=== PATIENT | male | born 1955 | race Caucasian/White ===

== ENCOUNTER 2021-11-18 07:26 | Day surgery (SDC) | payer BC, OTHER ==
[2021-11-17 13:09] VITALS: BMI 27.8
[2021-11-18] MEDS ORDERED: SUCCINYLCHOLINE CHLORIDE 200 MG/10 ML SYRINGE ONE (09:19)
[2021-11-18] MEDS ORDERED: MIDAZOLAM HCL 2 MG/2 ML SINGLE DOSE VIAL ONE (09:19)
[2021-11-18] MEDS ORDERED: PROPOFOL 20 ML ONE (09:19)
[2021-11-18] MEDS ORDERED: BUPIVACAINE HCL/EPINEPHRINE/PF 30 ML VIAL IJ ONE (09:30)
[2021-11-18] MEDS ORDERED: BUPIVACAINE HCL/PF 2.5 MG/ML - 30 ML VIAL IJ ONE (09:31)
[2021-11-18] MEDS ORDERED: PROMETHAZINE HCL 25 MG/1 ML VIAL IVPUSH PRN (11:49)
[2021-11-18] MEDS ORDERED: oxyCODONE HCL 5 MG TABLET PO PRN ×2 (11:49)
[2021-11-18] MEDS ORDERED: ONDANSETRON 4 MG/2 ML VIAL IVPUSH PRN (11:49)
[2021-11-18] MEDS ORDERED: FENTANYL CITRATE/PF 50 MCG/ML VIAL ONE ×3 (11:51→12:16)
[2021-11-18 12:15] VITALS: TEMP 97.5
[2021-11-18] MEDS ORDERED: ONDANSETRON 4 MG/2 ML VIAL ONE (12:16)
[2021-11-18] MEDS ORDERED: oxyCODONE HCL 5 MG TABLET ONE (13:04)
[2021-11-18 13:44] VITALS: BP 118/78; PULSE 81; RESP 18
== END 2021-11-18 13:48 | disposition home or self-care (01) ==
LOC: FASU 07:26
PROVIDERS: ATTEND Orthopaedic Surgery
PROC: 0LQ40ZZ Repair Left Upper Arm Tendon, Open Approach (ICD-10-PCS; principal; 2021-11-18 10:15)
DX: S46.212A Strain of muscle, fascia and tendon of other parts of biceps, left arm, initial encounter (principal); X58.XXXA Exposure to other specified factors, initial encounter; Y93.9 Activity, unspecified; Y92.9 Unspecified place or not applicable
CPT/HCPCS: 82962; 94760; C1713

== ENCOUNTER 2022-10-03 02:41 | Emergency (ER) | payer OTHER, MEDICARE ==
[2022-10-03 02:54] VITALS: RESP 20; BMI 28.0
[2022-10-03] MEDS ORDERED: ALBUTEROL SO4 2.5/IPRATROPIUM 0.5 INH SOL 3 ML VIAL.NEB. NEB ONE ×2 (03:25→03:37)
[2022-10-03] MEDS ORDERED: methylPREDNISolone NA SUCC 125 MG/2 ML VIAL IVPB ONE (03:26)
[2022-10-03] MEDS ORDERED: methylPREDNISolone NA SUCC 125 MG/2 ML VIAL ONE (03:38)
[2022-10-03 04:00] LABS: BASO % 0.4 % (0-2.0); EOS % 2.7 % (0-4.5); HEMATOCRIT 43.5 % (35.4-49); LYMPH % 38.7 % (8-40); MCHC 34.5 g/dl (32.0-35.9); MEAN PLT VOLUME 8.9 fl (7.5-11.1); MONO % 12.1 % (3.8-10.2); NEUT % 46.1 % (42.8-82.8); PLATELET COUNT 292 10^3/uL (134-434); RBC 5.01 M/mm3 (4.00-5.60); RDW 14.4 % (11.9-15.9); WHITE BLOOD COUNT 10.2 K/mm3 (4.0-10.0)
[2022-10-03 04:01] LABS: POTASSIUM 4.2 mmol/L (3.5-5.1)
[2022-10-03 04:03] LABS: ALBUMIN 3.6 g/dl (3.4-5.0); BLOOD UREA NITROGEN 31.9 mg/dL (7-18); CALCIUM 8.5 mg/dL (8.5-10.1)
[2022-10-03 04:08] LABS: BILIRUBIN,TOTAL 0.2 mg/dL (0.2-1); TOT PROT 6.9 g/dl (6.4-8.2)
[2022-10-03 04:11] LABS: N-TERMINAL BNP 58.6 pg/ml (5-125)
[2022-10-03] MEDS ORDERED: SODIUM CHLORIDE 0.9% 500 ML INFUS.BAG IV ONE (07:02)
[2022-10-03 07:13] VITALS: BP 115/83; PULSE 79; TEMP 97.7
== END 2022-10-03 08:43 | disposition home or self-care (01) ==
LOC: JER 02:41
PROC: 3E0F7GC Introduction of Other Therapeutic Substance into Respiratory Tract, Via Natural or Artificial Opening (ICD-10-PCS; principal; 2022-10-03)
PROC: 3E033GC Introduction of Other Therapeutic Substance into Peripheral Vein, Percutaneous Approach (ICD-10-PCS; 2022-10-03)
DX: R05.2 Subacute cough (principal); Z20.822 Contact with and (suspected) exposure to COVID-19
CPT/HCPCS: 0241U-QW; 36415; 71045-TC-FY; 71275-TC; 80053; 83880; 84484; 85025; 85610; 85730; 90471; 93005; 93010; 94640; 99285-25; Q9967